=== PATIENT | female | born 1990 | race Caucasian/White ===

== ENCOUNTER 2017-09-15 01:05 | Emergency (ER) | payer MEDICAID ==
[~2017-09-15] VITALS: Ht 154.9 cm; Wt 80.0 kg
[2017-09-15 01:06] VITALS: BP 137/83; PULSE 75; RESP 16; TEMP 99; O2SAT 98
--- NOTE | 2017-09-15 02:22 | PD ---
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 Patient states that she took a test at home which was positive and the line faded. She states she's had other symptoms including rest discomfort and some intermittent mild abdominal discomfort. She states that currently she feels okay she just wanted to be checked out because of the positive test at home. Denies any fever denies any nausea vomiting diarrhea or constipation. States her symptoms are mild, context as above, waxing and waning, no alleviating or exacerbating factors to be identified. PFSH Past Medical History ADHD: No Cancer: No Diabetes: No Diminished Hearing: No Psychiatric: No Immunizations Current: Yes Migraines: No Seizures: No Thyroid Disease: No Ulcer: No Tetanus Vaccination: < 5 Years Influenza Vaccination: No ?: LMP: 08/17/2017 : 2 Para: 0 Miscarriage: 1 : 0 Past Surgical History Surgical History: No Previous Surgery Appendectomy: No Cholecystectomy: No Other Surgery: No Social History Alcohol Use: No Tobacco Use: No Substance Use: No Allergies-Medications (Allergen,Severity, Reaction): Coded Allergies: No Known Allergies (Verified Adverse Reaction, Unknown, 09/15/17) Reported Meds & Prescriptions Reported Meds & Active Scripts Active No Active Prescriptions or Reported Medications Review of Systems Except as stated in HPI: all other systems reviewed are Neg Physical Exam Narrative GENERAL: Well-developed well-nourished in obvious distress SKIN: Focused skin assessment warm/dry. HEAD: Atraumatic. Normocephalic. EYES: Pupils equal and round. No scleral icterus. No injection or drainage. ENT: No nasal bleeding or discharge. Mucous membranes pink and moist. NECK: Trachea midline. No JVD. CARDIOVASCULAR: Regular rate and rhythm. No murmur appreciated. RESPIRATORY: No accessory muscle use. Clear to auscultation. Breath sounds equal bilaterally. GASTROINTESTINAL: Abdomen soft, non-tender, nondistended. Hepatic and splenic margins not palpable. GENITOURINARY: Exam performed with a nurse boarder machine present at all times, scant old blood in the vaginal vault, no bimanual tenderness, no cervical motion tenderness, no vaginal lesion, also disclosed. MUSCULOSKELETAL: No obvious deformities. No clubbing. No cyanosis. No edema. NEUROLOGICAL: Awake and alert. No obvious cranial nerve deficits. Motor grossly within normal limits. Normal speech. PSYCHIATRIC: Appropriate mood and affect; insight and judgment normal. Data Data Last Documented VS Vital Signs Date Time Temp Pulse Resp B/P (MAP) Pulse Ox O2 Delivery O2 Flow Rate FiO2 09/15/17 03:07 09/15/17 01:06 99.0 75 16 98 Room Air Orders Orders Urinalysis - C+S If Indicated (09/15/17 01:16) Ed Urine Pregnancytest Poc (09/15/17 01:16) Gc And Chlamydia Pcr (09/15/17 02:21) Wet Prep Profile (09/15/17 02:21) Ed Discharge Order (09/15/17 03:00) Labs Laboratory Tests Test 09/15/17 02:25 Urine Color YELLOW Urine Turbidity CLEAR Urine pH 6.0 Urine Specific [place] 1.035 Urine Protein TRACE mg/dL Urine Glucose (UA) NEG mg/dL Urine Ketones NEG mg/dL Urine Occult Blood SMALL Urine Nitrite NEG Urine Bilirubin NEG Urine Urobilinogen LESS THAN 2.0 MG/DL Urine Leukocyte Esterase NEG Urine RBC 1 /hpf Urine WBC 2 /hpf Urine Squamous Epithelial Cells 2 /hpf Urine Mucus FEW /lpf Microscopic Urinalysis Comment CULT NOT INDICATED Clue Cells (Wet Prep) NONE SEEN Vaginal Trichomonas (Wet Prep) NONE SEEN Vaginal Yeast (Wet Prep) NONE SEEN MDM Medical Decision Making Medical Screen Exam Complete: Yes Emergency Medical Condition: Yes Differential Diagnosis Rh mismatch unlikely, vaginal bleeding and , completed miscarriage, ectopic unlikely, acute abdomen excluded clinically. Narrative Course Patient roomed emerged permit, urine test negative here, pelvic exam is reassuring, last type and screen here in the emergency department shows Rh+ blood. Patient is comfortable no indication further workup in the emergency department, she was counseled on the likely diagnosis of completed miscarriage, discussed return to ED criteria follow-up with her regular physician. Diagnosis Primary Impression: Complete miscarriage Scripts No Active Prescriptions or Reported Meds Disposition: 01 DISCHARGE HOME Condition: Stable Jose Hanna MD Sep 15, 2017 02:22
[2017-09-15 02:40] LABS: BLOOD, URINE SMALL (NEG); COMMENT (UR) CULT NOT INDICATED; CULTURE IF INDICATED CULT NOT INDICATED; GLUCOSE,URINE NEG (NEG); KETONE, URINE NEG (NEG); MUCUS URINE FEW /lpf (OCC); NITRITE,URINE NEG (NEG); SQUAMOUS EPITHELIAL CELL URINE 2 /hpf (0-5); URINE COLOR YELLOW (YELLW/STRAW)
[2017-09-15 05:23] LABS: CHLAMYDIA PCR NOT DETECTED (NOT DETECT); NEISSERIA PCR NOT DETECTED (NOT DETECT)
== END 2017-09-15 03:56 | disposition home or self-care (01) ==
LOC: NEPC 01:05
DX: O03.9 Complete or unspecified spontaneous abortion without complication (principal)
CPT/HCPCS: 81001; 84703; 87210; 87491; 87591; 99284

== ENCOUNTER 2017-09-24 00:29 | Emergency (ER) | payer MEDICAID ==
[~2017-09-24] VITALS: Ht 154.9 cm; Wt 80.0 kg
[2017-09-24 00:31] VITALS: BP 163/70; PULSE 72; RESP 16; TEMP 98.4; O2SAT 100
[2017-09-24 01:31] LABS: AUTOMATED NEUTROPHIL # 6.6 TH/MM3 (1.8-7.7); BASOPHIL # 0.1 TH/MM3 (0-0.2); BASOPHIL % 0.5 % (0.0-2.0); EOSINOPHIL # 0.2 TH/MM3 (0-0.4); EOSINOPHIL % 1.9 % (0.0-4.0); HEMATOCRIT 36.6 % (35.0-46.0); HEMOGLOBIN 12.2 GM/DL (11.6-15.3); LYMPH % 31.9 % (9.0-44.0); LYMPHOCYTE # 3.5 TH/MM3 (1.0-4.8); MEAN CELL VOLUME 83.4 FL (80.0-100.0); MEAN CORPUSCULAR HEMOGLOBIN 27.7 PG (27.0-34.0); MEAN CORPUSCULAR HGB CONC 33.3 % (32.0-36.0); MEAN PLATELET VOLUME 7.2 FL (7.0-11.0); MONO % 5.5 % (0.0-8.0); MONOCYTE # 0.6 TH/MM3 (0-0.9); NEUT % 60.2 % (16.0-70.0); PLATELET COUNT 264 TH/MM3 (150-450); RED BLOOD COUNT 4.39 MIL/MM3 (4.00-5.30)
[2017-09-24 01:35] LABS: BILIRUBIN, URINE NEG (NEG); BLOOD, URINE MOD (NEG); GLUCOSE,URINE NEG (NEG); KETONE, URINE NEG (NEG); MUCUS URINE FEW /lpf (OCC); NITRITE,URINE NEG (NEG); PH, URINE 5.5 (5.0-8.5); SQUAMOUS EPITHELIAL CELL URINE 2 /hpf (0-5); URINE COLOR YELLOW (YELLW/STRAW); URINE LEUKOCYTE ESTERASE NEG (NEG)
[2017-09-24] MEDS ORDERED: KETOROLAC TROMETHAMINE 30 MG/ML (IVP) VIAL IV PUSH ONE (01:45)
[2017-09-24 01:54] LABS: BICARBONATE 27.2 MEQ/L (21.0-32.0); CALCIUM 8.6 MG/DL (8.5-10.1); CREATININE 0.81 MG/DL (0.50-1.00)
[2017-09-24 02:00] VITALS: BP 126/67; PULSE 80; RESP 16; O2SAT 97
--- NOTE | 2017-09-24 02:06 | PD ---
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 Patient reports that 1 week ago she was seen in the emergency department and diagnosed with a completed miscarriage. Patient states prior to that she had a faintly positive home test. Patient believes her last menstrual period was 07/17/17. Patient had a pelvic exam last week at time of evaluation and was told that she had miscarried but to return to the emergency department for any concerns. Patient states she's been well until today she noted some blood on her clothing and then had some spotting. Patient has not saturated a sanitary napkin in his does not have heavy bleeding. Patient has some mild cramping intermittently but none at this time. Patient denies any dizziness lightheadedness near syncope syncope shortness of breath sweats or severe pelvic pain. Patient has been sexually active since her miscarriage last week. [facility] Past Medical History Narrative Medical Negative past medical history negative surgery nursing notes reviewed Medical History: Denies Significant Hx ADHD: No Cancer: No Diabetes: No Diminished Hearing: No Psychiatric: No Immunizations Current: Yes Migraines: No Seizures: No Thyroid Disease: No Ulcer: No Tetanus Vaccination: < 5 Years Influenza Vaccination: No ?: LMP: 07/17/2017 : 2 Para: 0 Miscarriage: 1 : 0 Past Surgical History Surgical History: No Previous Surgery Appendectomy: No Cholecystectomy: No Other Surgery: No Social History Alcohol Use: No Tobacco Use: No Substance Use: No Allergies-Medications (Allergen,Severity, Reaction): Coded Allergies: No Known Allergies (Verified Adverse Reaction, Unknown, 09/15/17) Reported Meds & Prescriptions Reported Meds & Active Scripts Active No Active Prescriptions or Reported Medications Review of Systems Except as stated in HPI: all other systems reviewed are Neg Physical Exam Narrative GENERAL: Well-developed well-nourished female in no acute distress no respiratory distress SKIN: Warm and dry. HEAD: Normocephalic. EYES: No scleral icterus. No injection or drainage. NECK: Supple, trachea midline. No JVD or lymphadenopathy. CARDIOVASCULAR: Regular rate and rhythm without murmurs, gallops, or rubs. RESPIRATORY: Breath sounds equal bilaterally. No accessory muscle use. GASTROINTESTINAL: Abdomen soft, non-tender, nondistended. Pelvic exam: Normal external exam no redness induration or lesions; speculum exam scant blood in the vaginal vault no clots no tissue cervical os is closed; bimanual exam no adnexal mass or tenderness or cervical motion tenderness. MUSCULOSKELETAL: No cyanosis, or edema. BACK: Nontender without obvious deformity. No CVA tenderness. Data Data Last Documented VS Vital Signs Date Time Temp Pulse Resp B/P (MAP) Pulse Ox O2 Delivery O2 Flow Rate FiO2 09/24/17 02:44 09/24/17 02:00 80 16 97 Room Air 09/24/17 00:31 98.4 Orders Orders Complete Blood Count With Diff (09/24/17 01:03) Basic Metabolic Panel (Bmp) (09/24/17 01:03) Urinalysis - C+S If Indicated (09/24/17 01:03) Ed Urine Pregnancytest Poc (09/24/17 01:22) Ketorolac Inj (Toradol Inj) (09/24/17 01:45) Potassium Chloride (Kcl) (09/24/17 02:15) Ed Discharge Order (09/24/17 02:07) Labs Laboratory Tests Test 09/24/17 01:00 09/24/17 01:20 Urine Color YELLOW Urine Turbidity CLEAR Urine pH 5.5 Urine Specific [place] 1.029 Urine Protein TRACE mg/dL Urine Glucose (UA) NEG mg/dL Urine Ketones NEG mg/dL Urine Occult Blood MOD Urine Nitrite NEG Urine Bilirubin NEG Urine Urobilinogen LESS THAN 2.0 MG/DL Urine Leukocyte Esterase NEG Urine RBC 4 /hpf Urine WBC 2 /hpf Urine Squamous Epithelial Cells 2 /hpf Urine Mucus FEW /lpf Microscopic Urinalysis Comment CULT NOT INDICATED White Blood Count 11.0 TH/MM3 Red Blood Count 4.39 MIL/MM3 Hemoglobin 12.2 GM/DL Hematocrit 36.6 % Mean Corpuscular Volume 83.4 FL Mean Corpuscular Hemoglobin 27.7 PG Mean Corpuscular Hemoglobin Concent 33.3 % Red Cell Distribution Width 14.0 % Platelet Count 264 TH/MM3 Mean Platelet Volume 7.2 FL Neutrophils (%) (Auto) 60.2 % Lymphocytes (%) (Auto) 31.9 % Monocytes (%) (Auto) 5.5 % Eosinophils (%) (Auto) 1.9 % Basophils (%) (Auto) 0.5 % Neutrophils # (Auto) 6.6 TH/MM3 Lymphocytes # (Auto) 3.5 TH/MM3 Monocytes # (Auto) 0.6 TH/MM3 Eosinophils # (Auto) 0.2 TH/MM3 Basophils # (Auto) 0.1 TH/MM3 CBC Comment DIFF FINAL Differential Comment Blood Urea Nitrogen 13 MG/DL Creatinine 0.81 MG/DL Random Glucose 85 MG/DL Calcium Level 8.6 MG/DL Sodium Level 142 MEQ/L Potassium Level 3.3 MEQ/L Chloride Level 109 MEQ/L Carbon Dioxide Level 27.2 MEQ/L Anion Gap 6 MEQ/L Estimat Glomerular Filtration Rate 85 ML/MIN MDM Medical Decision Making Medical Screen Exam Complete: Yes Emergency Medical Condition: Yes Medical Record Reviewed: Yes Interpretation(s) [id number] hCG: Negative CBC & BMP Diagram 09/24/17 01:20 Calcium Level 8.6 Vital Signs Date Time Temp Pulse Resp B/P (MAP) Pulse Ox O2 Delivery O2 Flow Rate FiO2 09/24/17 02:44 09/24/17 02:00 80 16 126/67 (86) 97 Room Air 09/24/17 00:31 98.4 72 16 163/70 (101) 100 Room Air Differential Diagnosis Vaginal bleeding, menses, incomplete miscarriage Narrative Course IV access obtained specimens collected and sent for resulting [id number] hCG is negative Pelvic exam performed scant blood in the vaginal vault without clots tissue and the cervical os is closed nontender exam no cervical motion tenderness Patient is stable for outpatient management and follow-up with gynecology Patient is encouraged to return to the emergency for free concerns or change in condition Diagnosis Primary Impression: Vaginal bleeding Referrals: Motor And Chassis Inspector call for appointment Patient Instructions: General Instructions Additional Instructions: Increase fluid hydration Follow-up with [employer] Return to the emergency for free concerns May take acetaminophen every 4 hours as needed for fever 100.4F or greater or minor pain May take ibuprofen/Advil/Motrin every 6-8 hours as needed for fever 100.4F or greater or for any associated with inflammation Med/Other Pt SpecificInfo: No Meds Exist/No RX given Scripts No Active Prescriptions or Reported Meds Disposition: DISCHARGE HOME Condition: Stable Cheryle Saxena MD Sep 24, 2017 02:06
[2017-09-24] MEDS ORDERED: POTASSIUM CHLORIDE 20 MEQ CONTROLLED RELEASE TAB PO ONE (02:15)
== END 2017-09-24 02:49 | disposition home or self-care (01) ==
LOC: NEPC 00:29
DX: N93.9 Abnormal uterine and vaginal bleeding, unspecified (principal)
CPT/HCPCS: 80048; 81001; 84703; 85025; 99283